=== PATIENT | female | born 1965 | race Caucasian/White ===

== ENCOUNTER 2017-03-12 08:58 | Observation (INO) | payer BC ==
[~2017-03-12 08:58] MED LIST: ceFAZolin SODIUM 2 GM in DEXTROSE 5 % IN WATER 50 ML IV PRN
--- OUTSIDE RECORDS SUMMARY | 2017-03-12 09:02 | XMS REPORT | Continuity of Care Document ---
:1965 Author Organization [facility] ([facility]) Address [address] [place] [address] Phone [phone] Care Team Providers Name Role Phone Nadeem Mariia Primary Care Provider [phone] Source Comments This disclosure is being made pursuant to the Care Everywhere program, applicable federal and state laws, and may not contain all informaitonavailable regarding this patient.[facility] ([facility]) Active Allergies and Adverse Reactions No Known Allergies Current Medications Prescription Sig. Disp. Refills Start Date End Date Status metFORMIN 1,000 mg Take 1,000 mg by Active tablet mouth 2 times daily. enalapril 5 mg tablet Take 5 mg by Active mouth daily. glimepiride 4 mg tablet Take 4 mg by Active mouth Every morning. sitaGLIPtin (JANUVIA) Take 100 mg by Active 100 mg tablet mouth daily. FLUoxetine 10 mg Take 10 mg by Active capsule mouth daily. FERROUS FUMARATE (IRON Take 65 mg by Active PO) mouth. cyanocobalamin (VITAMIN Take 500 mcg by Active B-12) 500 mcg tablet mouth daily. aspirin 81 mg EC tablet Take 81 mg by Active mouth daily. levonorgestrel-ethinyl Take 1 Tab by 56 Tab 12 05/11/2014 Active estradiol (AVIANE) mouth daily. Take 0.1-0.02 mg per tablet back to back packs Indications: ABNORMAL UTERINE BLEEDING levonorgestrel-ethinyl Take 1 tablet by 54 tablet 0 01/21/2016 Active estradiol (AVIANE) mouth daily. 0.1-0.02 mg per tablet Needs to be seen to get any future refills Active Problems Problem Noted Date PCOS (polycystic ovarian syndrome) 08/28/2014 Metrorrhagia 05/13/2007 Social History Tobacco Use Types Packs/Day Years Used Date Never Smoker Smokeless Tobacco: Never Used Last Filed Vital Signs Vital Sign Reading Time Taken Blood Pressure 141/82 08/28/2014 3:31 PM CHILD'S NURSE Pulse 93 08/28/2014 3:31 PM CHILD'S NURSE Temperature 37.2 C (99 F) 08/28/2014 3:31 PM CHILD'S NURSE Respiratory Rate - - Height 1.65 m (5' 4.96") 05/04/2014 1:09 PM CDT Weight 96.7 kg (213 lb 3 oz) 08/28/2014 3:31 PM CHILD'S NURSE Body Mass Index 35.52 08/28/2014 3:31 PM CHILD'S NURSE Oxygen Saturation - - Plan of Care Health Maintenance Due Date Last Done Comments Hepatitis B Vaccine (1 of 3 - Primary Series) 1965 Tdap Vaccine 1978 Lipid Disorder Screening 1985 MMR Vaccine 1985 Td Vaccine 1985 Cervical Cancer Screening 12/29/2002 12/30/1999 Mammogram 2007 Influenza Vaccine: Seasonal (#1) 05/05/2016 Results from Last 3 Months Not on file
[2017-03-12 09:14] LABS: Hematocrit 41.3 % (37.0-47.0); Mean Cell Volume 82.9 fl (78-100); Mean Corpuscular Hemoglobin 26.1 pg (27-31); Mean Corpuscular Hgb Conc 31.5 g/dl (32-36); Mean Platelet Volume 10.2 fl (6.0-9.5); Neutrophil # 10.7 K/mm3 (1.3-6.0); Neutrophil % 76.5 % (42-75.0); Platelet Count 361 K/mm3 (150-450); Red Blood Count 4.98 M/mm3 (4.2-5.4); Red Cell Distribution Width 14.2 % (11.5-14.0); White Blood Count 13.9 K/mm3 (4.0-10.5)
[2017-03-12 09:29] LABS: Albumin * 3.4 gm/dl (3.4-5.0); Anion Gap 13.4 mmol/L (6.8-13.8); BUN/Creatinine Ratio 20.7 (9.0-21.6); Bilirubin, Total 0.4 mg/dL (0.0-1.1); Ca. Corrected For Albumin 9.8 mg/dL (8.4-10.2); Calcium * 9.6 mg/dL (7.9-10.9); Carbon Dioxide 26.8 mmol/L (24-32.6); Potassium 5.2 mmol/L (3.4-4.6); Total Protein 7.8 gm/dL (6.2-8.2)
[2017-03-12] MEDS ORDERED: RINGERS SOLUTION,LACTATED 1,000 ML IV ONE ×4 (10:40→16:40)
--- OUTSIDE RECORDS SUMMARY | 2017-03-12 12:08 | XMS REPORT | Continuity of Care Document ---
:1965 Author Organization [facility] ([facility]) Address [address] [place] [address] Phone [phone] Care Team Providers Name Role Phone Nadeem Mariia Primary Care Provider [phone] Source Comments This disclosure is being made pursuant to the Care Everywhere program, applicable federal and state laws, and may not contain all informaitonavailable regarding this patient.[facility] ([facility]) Active Allergies and Adverse Reactions No [...] Taken Blood Pressure 141/82 08/28/2014 3:31 PM GERONTOLOGICAL NURSE PRACTITIONER Pulse 93 08/28/2014 3:31 PM GERONTOLOGICAL NURSE PRACTITIONER Temperature 37.2 C (99 F) 08/28/2014 3:31 PM GERONTOLOGICAL NURSE PRACTITIONER Respiratory Rate - - Height 1.65 m (5' 4.96") 05/04/2014 1:09 PM CDT Weight 96.7 kg (213 lb 3 oz) 08/28/2014 3:31 PM GERONTOLOGICAL NURSE PRACTITIONER Body Mass Index 35.52 08/28/2014 3:31 PM GERONTOLOGICAL NURSE PRACTITIONER Oxygen Saturation - - Plan of Care [...]
[2017-03-12] MEDS ORDERED: diphenhydrAMINE HCL 50 MG/ML VIAL IV PRN (15:37)
[2017-03-12] MEDS ORDERED: PROMETHAZINE HCL 12.5 MG in DEXTROSE 5 % IN WATER 50 ML IV PRN ×2 (15:37)
[2017-03-12] MEDS ORDERED: ONDANSETRON HCL/PF 2 MG/ML VIAL IV PRN ×2 (15:37→17:00)
[2017-03-12] MEDS ORDERED: HYDROmorphone HCL 2 MG/ML VIAL IV PRN (15:37)
[2017-03-12] MEDS ORDERED: NALOXONE HCL 1 MG/1 ML SYRG IV PRN (16:00)
[2017-03-12] MEDS ORDERED: INSULIN REGULAR, HUMAN 100 UNITS/ML VIAL IV ONE (16:00)
[2017-03-12] MEDS ORDERED: BUPIVACAINE HCL 50 ML VIAL IJ ONE (16:00)
[2017-03-12] MEDS ORDERED: IBUPROFEN 600 MG TABLET PO PRN (16:49)
[2017-03-12] MEDS ORDERED: RINGERS SOLUTION,LACTATED 1,000 ML IV PRN (16:49)
--- NOTE | 2017-03-12 16:49 | OR ---
Operative Report - Dictated Report Narrative: DATE OF PROCEDURE: 03/12/2017 PROCEDURE: 1. Total laparoscopic hysterectomy, bilateral salpingectomy 2. Lysis of adhesion 3. Diagnostic cystoscopy ANESTHESIA: General, endotracheal intubation. PREOPERATIVE DIAGNOSES: 1. Menorrhagia, failed hormonal therapy 2. S/P x 2 3. Uncontrolled diabetes POSTOPERATIVE DIAGNOSES: 1. Menorrhagia, failed hormonal therapy 2. S/P x 2 3. Uncontrolled diabetes SURGEON: Kirstin Virgen M.D. COLORED LIQUID PLASTIC APPLIER: Yris Barr FINDINGS: 1. Omental adhesions to anterior abdominal wall. 2. Lower uterine segment adhesions. 3. Uterus sounded to 8 cm. Both ovaries and fallopian tubes appeared normal. 4. On cystoscopy, the bladder appeared intact and bilateral ureteral jets were seen. SPECIMENS: Uterus, cervix, and both tubes DRAINS: None. URINE OUTPUT: 600 ml BLOOD LOSS: 100 ml INTRAOPARATIVE IV FLUIDS: 2000 ml COMPLICATIONS: None. DESCRIPTION OF PROCEDURE: The patient consented to the operation and was taken to the operating room. She was placed on the operating table supine. SCDs were placed on her lower extremities. General anesthesia was induced. Two grams of ancef was given by IV prior to anesthesia induction. She was repositioned in the dorsal lithotomy position. Her right arm was tucked at her side under the drape. Exam under anesthesia revealed a tight vaginal introitus and a normal size uterus with no adnexal mass. The abdomen was prepped with Chloraprep and the vagina was prepped with Betadine. She was draped in the usual sterile fashion. A time-out procedure was conducted to confirm the correct patient for the correct procedure. After time-out, a Waters catheter was placed into the bladder. A bivalve speculum was placed into the vagina. The vagina and the cervix were prepped with Betadine one more time. The anterior cervix was grasped with a single-tooth tenaculum. The uterus was sounded to 8 cm. A large VCare uterine manipulator was inserted into the uterine cavity. The balloon was inflated with 5 cc of air. The single-tooth tenaculum was removed. Paris speculum was removed. The upper VCare cup was advanced into the vagina to hug the cervix. The lower VCare cup was advanced into the vagina to align with the upper VCare cup and to provide pneumoperitoneum for the procedure. The lower VCare cup was fastened to the uterine manipulator. The surgeon then changed gloves and attention was paid to the abdomen. A small vertical incision was made at the upper edge of the umbilicus. A Veress needle was inserted into the abdominal cavity. Intraabdominal placement was confirmed with a saline drop test and with low entry pressure of 4 mmHg. The abdomen was insufflated with CO2 gas to an intraabdominal pressure of 12 mmHg. The Veress needle was removed. A 5 mm trocar with the laparoscope was inserted through the umbilicus incision into the abdomen. Intraabdominal placement was confirmed with the laparoscope. Survey of the entry site revealed no trauma to the underlying structures. Survey of the upper abdomen was unremarkable. The patient was then placed in Trendelenburg position. A left and a right lower quadrant trocars (5 mm) were placed under the direct visualization of the laparoscope. The omentum adhesions in the anterior abdominal wall was taken down with the Thunderbeat. This allowed the visualization to the pelvis. A third trocar (5 mm) was placed suprapubically in the midline. Survey of the pelvis revealed findings note above. Attention was now turned to the left side. The left fallopian tubal was elevated. The mesosalpinx was divided with the Thunderbeat. The division was carried to the cornual region. The uteroovarian ligament was divided with the Thunderbeat and the division was carried on the broad ligament to the round ligament towards the lower uterine segment. The course of the left ureter was not identified, but believed to be away from the surgical field. The broad ligament incision was into the anterior leaf and the posterior leaf. Anterior leaf of the broad ligament was dissected towards the bladder uterine reflection. There was dense adhesion in the lower uterine segment. Careful dissection was performed here. The posterior leaf of the broad ligament was dissected towards the uterosacral ligament. The left uterine vessel was isolated and divided with the Thunderbeat. There was bleeding from the uterine vessel and this was secured with the Thunderbeat. The cardinal ligament complex was divided with the Thunderbeat to the level of vaginal cervical junction. Attention was now turned to the right side. The mesosalpinx was divided with the Thunderbeat. The uteroovarian ligament was divided with the Thunderbeat and the division was carried on the broad ligament to the round ligament towards the lower uterine segment. The course of the right ureter was not identified due to excess adipose tissue from obesity. The broad ligament incision was into the anterior leaf and the posterior leaf. The anterior leaf of the broad ligament was dissected towards the bladder uterine reflection. Again, careful dissection was performed here due to dense adhesion in the lower uterine segment. The posterior leaf of the broad ligament was dissected towards the uterosacral ligament. The right uterine vessel was isolated, and divided with the Thunderbeat. There was some bleeding here and was controlled with the Thunderbeat. The cardinal ligament complex was divided with the Thunderbeat to the level of vaginal cervical junction. Now the vaginal fornix was able to seen well through the VCare cup. The Thunderbeat was used to make an anterior colpotomy over the VCare cup groove. Entry into the vagina was without complications. A circumferential incision was made along the vaginal cervical junction using the Thunderbeat. Bilateral uterosacral ligament was divided. The cervix was completely divided from the vagina. The surgeon moved to the vaginal area to retrieve the specimen. The VCare uterine manipulator was removed. The cervix with the uterus and both tubes were removed through the vagina in one piece. The vagina was packed with 2 moist laps to keep the pneumoperitoneum. The surgeon then changed gloves and attention was paid back to the abdomen. The pelvis was thoroughly irrigated with saline. The vaginal opening was closed transversely with interrupted 0 Vicryl Endoknot suture using intracorporeal suturing technique and extracorporeal knot tying. The uterosacral ligament on each side was sutured to the vaginal cuff corner for cuff support. The pelvis was irrigated with saline. Extra fluid was suctioned out from the abdomen and pelvis. There was hemostasis in all vessel pedicles. The patient was taken out of Trendelenburg Three lower abdominal trocars were removed. The abdomen was deflated. The trocar at the umbilicus was removed with the laparoscope. The skin incision was closed with 4-0 Monocryl suture and was covered with Steri- Strips. 2-3 ml of 0.25% Marcaine was infiltrated under the laparoscopic incision for post op pain management. Next, a diagnostic cystoscopy was performed. Vaginal packing was removed and the Waters catheter was removed. A 70-degree cystoscope was introduced through the urethra into the bladder. Exam of the bladder revealed the bladder was intact. There were urine jets coming out from the left as well as the right ureteral orifice, confirming the integrity of ureters. The cystoscope was removed. The Waters catheter was not replaced. The patient tolerated the procedure well. All counts were correct and the patient was taken to the recovery room in stable condition. Abount 40 min prior to the complete of the procedure, patient's blood glucose was 237 and 12 unit of insulin was given by the anesthesiologist. Kirstin Virgen MD
[2017-03-12] MEDS ORDERED: HYDROcodone/ACETAMINOPHEN 1 EACH TABLET PO PRN (16:53)
[2017-03-12] MEDS: RINGERS SOLUTION,LACTATED 1,000 ML IV PRN ×2 (17:29→23:47)
[2017-03-12] MEDS ORDERED: ALPRAZolam 0.5 MG TABLET PO PRN (19:45)
[2017-03-12] MEDS ORDERED: HYDROmorphone HCL 1 MG/ML DISP.SYRIN IV PRN (19:48)
[2017-03-12] MEDS ORDERED: INSULIN REGULAR, HUMAN 100 UNITS/ML VIAL SC SCH (21:00)
[2017-03-12] MEDS ORDERED: INSULIN GLARGINE,HUM.REC.ANLOG 100 UNITS/ML VIAL SC SCH ×2 (21:00)
[2017-03-12] MEDS ORDERED: ATORVASTATIN CALCIUM 10 MG TABLET PO SCH (21:00)
[2017-03-12] MEDS: FERROUS SULFATE 325 MG TABLET PO SCH (21:07)
[2017-03-12] MEDS: RINGERS SOLUTION,LACTATED 500 ML IV PRN ×2 (21:21→22:21)
[2017-03-12] MEDS ORDERED: RINGERS SOLUTION,LACTATED 500 ML IV PRN (22:39)
--- NOTE | 2017-03-12 23:24 | PN ---
<Monique Bolton - Last Filed: 03/13/17 01:52> Subjective - Date and Time Seen Date: 03/12/17 Time: 20:15 Subjective Narrative: doing well, has not voided yet but feels like she needs to. no n/v. no cp/ dyspnea. post op hysterectomy / bilateral salpingectomy. Objective - Review of Systems Generalized/Overall Review: Reports: No Symptoms Reported EENTM: Reports: No Symptoms Reported Respiratory: Reports: No Symptoms Reported Cardiac: Reports: No Symptoms Reported Abdominal: Reports: No Symptoms Reported Genitourinary Symptoms: Reports: Other - feels like needs to urinate but unable to void yet post op Musculoskeletal Complaints: Reports: No Symptoms Reported Neurological: Reports: No Symptoms Reported Skin: Reports: No Symptoms Reported Endocrine: Reports: No Symptoms Reported Misc: All systems neg except as marked - Vitals Vitals: Last Vital Signs Temp 37.3 C 03/12/17 20:10 Pulse 112 H 03/12/17 22:10 Resp 16 03/12/17 22:10 BP 129/72 03/12/17 22:10 Pulse Ox 98 03/12/17 22:10 - Abnormal Lab Findings Abnormal Lab Findings: Abnormal Lab Results 03/12/17 03/12/17 Range/Units 09:05 09:05 WBC 13.9 H (4.0-10.5) K/mm3 MCH 26.1 L (27-31) pg MCHC 31.5 L (32-36) g/dl RDW 14.2 H (11.5-14.0) % MPV 10.2 H (6.0-9.5) fl Immature Gran % (Auto) 0.50 H (0.001-0.429) % Immature Gran # (Auto) 0.07 H (0.000-0.0310) K/mm3 Neutrophils % 76.5 H (42-75.0) % Lymphocytes % 12.7 L (20-51) % Eosinophils % 3.2 H (0.0-3.0) % Neutrophils # 10.7 H (1.3-6.0) K/mm3 Potassium 5.2 H D (3.4-4.6) mmol/L Random Glucose 228 H (70-110) mg/dL AST 59 H (0-48) U/L - Exam Constitutional: Present: Alert, Cooperative, No distress ENT Exam: Present: hearing grossly normal Neck: Present: full range of motion, supple Breasts: Present: Exam deferred Respiratory: Present: lungs clear, normal breath sounds, no respiratory distress Cardiovascular/Chest: Present: normal peripheral pulses, regular rate, rhythm, no chest tenderness, tachycardia Abdomen: Present: soft, nondistended, tender /Rectal: Present: Exam deferred Extremity: Present: non-tender, normal inspection, no pedal edema Skin Exam: Present: normal color, warm/dry, no cyanosis Assessment/Plan Plan Narrative: s/p hysterectomy and bilateral salpingectomy - per vat tender - encourage good pain management - currently unable to void with tachycardia (although denies pain) - will give 500 ml bolus LR - discharge per vat tender DM, uncontrolled with hyperglycemia - recent hgba1c 11.0 - current lantus dose 10 unts at bedtime - increase to 15 units at bedtime - high dose sliding scale QID - accu-check QID - continue metformin and actos - follow up outpt Chronic medical conditions - general anxiety disorder - obesity - HLD Code status: Full Code VTE: early ambulation GI proph: protonix po. - Problems/Diagnosis (1) S/P hysterectomy Problem: Acute (2) Status post bilateral salpingectomy Problem: Acute (3) Diabetes Problem: Chronic QualifierTitle: Diabetes mellitus type: type 2 Diabetes mellitus complication status: with hyperglycemia Diabetes mellitus termite exterminator helper insulin use: with prison use Qualified Code(s): E11.65 - Type 2 diabetes mellitus with hyperglycemia; Z79.4 - intermediate (current) use of insulin (4) Obesity Problem: Chronic QualifierTitle: Obesity type: due to excess calories Obesity severity: non-morbid Qualified Code(s): E66.09 - Other obesity due to excess calories (5) DAVID (generalized anxiety disorder) Problem: Chronic (6) HLD (hyperlipidemia) Problem: Chronic QualifierTitle: Hyperlipidemia type: unspecified Qualified Code(s): E78.5 - Hyperlipidemia, unspecified <Gage Mathew - Last Filed: 03/13/17 18:10> Subjective Subjective Narrative: progress as expected. I personally directed our nurse practitioner care for this patient. Objective - Vitals Vitals: Last Vital Signs Temp 37 C 03/13/17 06:47 Pulse 104 H 03/13/17 08:50 Resp 18 03/13/17 06:47 BP 123/71 03/13/17 08:50 Pulse Ox 98 03/13/17 06:47 - Abnormal Lab Findings Abnormal Lab Findings: Abnormal Lab Results 03/13/17 03/13/17 Range/Units 06:34 06:34 WBC 13.3 H (4.0-10.5) K/mm3 Hgb 11.1 L (12.5-16.0) gm/dL Hct 35.1 L (37.0-47.0) % MCH 26.4 L (27-31) pg MCHC 31.6 L (32-36) g/dl RDW 14.3 H (11.5-14.0) % MPV 10.3 H (6.0-9.5) fl Immature Gran % (Auto) 0.50 H (0.001-0.429) % Immature Gran # (Auto) 0.07 H (0.000-0.0310) K/mm3 Lymphocytes % 17.0 L (20-51) % Neutrophils # 9.7 H (1.3-6.0) K/mm3 Monocytes # 1.1 H (0.0-1.0) k/mm3 Anion Gap 14.4 H (6.8-13.8) mmol/L Random Glucose 162 H (70-110) mg/dL Albumin 2.7 L (3.4-5.0) gm/dl
[2017-03-13 06:46] LABS: Hematocrit 35.1 % (37.0-47.0); Hemoglobin 11.1 gm/dL (12.5-16.0); Mean Cell Volume 83.4 fl (78-100); Mean Corpuscular Hemoglobin 26.4 pg (27-31); Mean Corpuscular Hgb Conc 31.6 g/dl (32-36); Mean Platelet Volume 10.3 fl (6.0-9.5); Neutrophil # 9.7 K/mm3 (1.3-6.0); Neutrophil % 72.9 % (42-75.0); Platelet Count 296 K/mm3 (150-450); Red Blood Count 4.21 M/mm3 (4.2-5.4); Red Cell Distribution Width 14.3 % (11.5-14.0); White Blood Count 13.3 K/mm3 (4.0-10.5)
[2017-03-13 06:49] VITALS: BP 123/71
[2017-03-13 06:52] LABS: Albumin * 2.7 gm/dl (3.4-5.0); Anion Gap 14.4 mmol/L (6.8-13.8); BUN/Creatinine Ratio 15.4 (9.0-21.6); Bilirubin, Total 0.5 mg/dL (0.0-1.1); Ca. Corrected For Albumin 9.7 mg/dL (8.4-10.2); Carbon Dioxide 26.9 mmol/L (24-32.6); Potassium 4.3 mmol/L (3.4-4.6); Total Protein 6.5 gm/dL (6.2-8.2)
[2017-03-13] MEDS ORDERED: PANTOPRAZOLE SODIUM 40 MG TABLET.EC PO SCH (07:00)
--- NOTE | 2017-03-13 07:22 | PN ---
Subjective - Date and Time Seen Date: 03/13/17 Time: 07:17 Subjective Narrative: doing well. states pain controlled. tachycardic overnight - asymptomatic. no n /v. no cp/dyspnea. post op hysterectomy / bilateral salpingectomy. Objective - Review of Systems Generalized/Overall Review: Reports: No Symptoms Reported EENTM: Reports: No Symptoms Reported Respiratory: Reports: No Symptoms Reported Cardiac: Reports: No Symptoms Reported Abdominal: Reports: Abdominal Pain Genitourinary Symptoms: Reports: No Symptoms Reported Musculoskeletal Complaints: Reports: No Symptoms Reported Neurological: Reports: No Symptoms Reported Skin: Reports: No Symptoms Reported Endocrine: Reports: No Symptoms Reported Misc: All systems neg except as marked - Vitals Vitals: Last Vital Signs Temp 37 C 03/13/17 06:47 Pulse 104 H 03/13/17 06:47 Resp 18 03/13/17 06:47 BP 123/71 03/13/17 06:47 Pulse Ox 98 03/13/17 06:47 - Abnormal Lab Findings Abnormal Lab Findings: Abnormal Lab Results 03/12/17 03/12/17 03/13/17 Range/Units 09:05 09:05 06:34 WBC 13.9 H 13.3 H (4.0-10.5) K/mm3 Hgb 11.1 L (12.5-16.0) gm/dL Hct 35.1 L (37.0-47.0) % MCH 26.1 L 26.4 L (27-31) pg MCHC 31.5 L 31.6 L (32-36) g/dl RDW 14.2 H 14.3 H (11.5-14.0) % MPV 10.2 H 10.3 H (6.0-9.5) fl Immature Gran % (Auto) 0.50 H 0.50 H (0.001-0.429) % Immature Gran # (Auto) 0.07 H 0.07 H (0.000-0.0310) K/mm3 Neutrophils % 76.5 H (42-75.0) % Lymphocytes % 12.7 L 17.0 L (20-51) % Eosinophils % 3.2 H (0.0-3.0) % Neutrophils # 10.7 H 9.7 H (1.3-6.0) K/mm3 Monocytes # 1.1 H (0.0-1.0) k/mm3 Potassium 5.2 H D (3.4-4.6) mmol/L Anion Gap (6.8-13.8) mmol/L Random Glucose 228 H (70-110) mg/dL AST 59 H (0-48) U/L Albumin (3.4-5.0) gm/dl 03/13/ Range/Units 06:34 WBC (4.0-10.5) K/mm3 Hgb (12.5-16.0) gm/dL Hct (37.0-47.0) % MCH (27-31) pg MCHC (32-36) g/dl RDW (11.5-14.0) % MPV (6.0-9.5) fl Immature Gran % (Auto) (0.001-0.429) % Immature Gran # (Auto) (0.000-0.0310) K/mm3 Neutrophils % (42-75.0) % Lymphocytes % (20-51) % Eosinophils % (0.0-3.0) % Neutrophils # (1.3-6.0) K/mm3 Monocytes # (0.0-1.0) k/mm3 Potassium (3.4-4.6) mmol/L Anion Gap 14.4 H (6.8-13.8) mmol/L Random Glucose 162 H (70-110) mg/dL AST (0-48) U/L Albumin 2.7 L (3.4-5.0) gm/dl - Exam Constitutional: Present: Alert, Oriented x3, Cooperative, No distress ENT Exam: Present: hearing grossly normal Neck: Present: supple Respiratory: Present: lungs clear, normal breath sounds, no respiratory distress Cardiovascular/Chest: Present: normal peripheral pulses, regular rate, rhythm, tachycardia Abdomen: Present: soft, nondistended, tender /Rectal: Present: Exam deferred Extremity: Present: normal range of motion, non-tender, normal inspection, no pedal edema Skin Exam: Present: normal color, warm/dry, no cyanosis Assessment/Plan Plan Narrative: s/p hysterectomy and bilateral salpingectomy - per b2b sales executive - encourage good pain management - discharge per b2b sales executive DM, uncontrolled with hyperglycemia - recent hgba1c 11.0 - discharge with lantus at 10 units q hs - no sliding scale at discharge. - continue metformin and actos - follow up outpt HTN - restart lisinopril as blood pressure is higher this am. - CMP next week Chronic medical conditions - general anxiety disorder - obesity - HLD Code status: Full Code VTE: early ambulation GI proph: protonix po. - Problems/Diagnosis (1) S/P hysterectomy Problem: Acute (2) Status post bilateral salpingectomy Problem: Acute (3) Diabetes Problem: Chronic Qualifiers: Diabetes mellitus type: type 2 Diabetes mellitus complication status: with hyperglycemia Diabetes mellitus long-term insulin use: with long-term use Qualified Code(s): E11.65 - Type 2 diabetes mellitus with hyperglycemia; Z79.4 - jail (current) use of insulin (4) Obesity Problem: Chronic Qualifiers: Obesity type: due to excess calories Obesity severity: non-morbid Qualified Code(s): E66.09 - Other obesity due to excess calories (5) DAVID (generalized anxiety disorder) Problem: Chronic (6) HLD (hyperlipidemia) Problem: Chronic Qualifiers: Hyperlipidemia type: unspecified Qualified Code(s): E78.5 - Hyperlipidemia , unspecified
[2017-03-13] MEDS ORDERED: INSULIN GLARGINE,HUM.REC.ANLOG 100 UNITS/ML VIAL SC SCH (07:23)
--- NOTE | 2017-03-13 08:53 | DS ---
(1) S/P hysterectomy Problem: Acute (2) Status post bilateral salpingectomy Problem: Acute (3) Diabetes Problem: Chronic Qualifiers: Diabetes mellitus type: type 2 Diabetes mellitus complication status: with hyperglycemia Diabetes mellitus joint terminal attack controller insulin use: with joint terminal attack controller use Qualified Code(s): E11.65 - Type 2 diabetes mellitus with hyperglycemia; Z79.4 - joint terminal attack controller (current) use of insulin Description of Stay: post op day 1, s/p TLH and BS. no complaints. doing well. blood sugar much improved and below 200. ambulating and tolerating diet well. voided. pain controlled. Exam: Well Abdomen: non-distended, soft, non-tender, normal bowel sounds. Incisions: intact. Ext: no edema or calf tenderness. Plan: will discharge home today. follow recommendations from PCP regarding diabetes treatment. Kirstin Virgen MD Procedures Performed: see notes below - total laparoscopic hysterectomy, bilateral salpingectomy, lysis of adhesions and cystoscopy Discharge Disposition: Home self care Disposition: Home self-care Condition: Good Discharge Activity: Activity as tolerated, Other - No lifting more than 5 lbs Discharge Diet: Consistent carbs Complete Home Medications List: Complete Home Medication List: ALPRAZolam [Xanax] 0.25 - 0.5 mg PO Q8H PRN 02/26/17 Atorvastatin Calcium [Lipitor] 20 mg PO HS 02/26/17 Biotin [Meribin] 5 mg PO DAILY 02/26/17 Blood-Glucose Meter [Blood Glucose Monitoring] 1 each MC BID 02/26/17 Cyanocobalamin [Vitamin B-12] 1,000 mcg PO DAILY 02/26/17 Enalapril Maleate [Vasotec] 10 mg PO DAILY 02/26/17 FLUoxetine HCL [Prozac] 10 mg PO DAILY 02/26/17 Ferrous Sulfate [Iron] 325 mg PO BID 02/26/17 Pioglitazone HCl [Actos] 30 mg PO DAILY 02/26/17 metFORMIN HCL [Glucophage] 1,000 mg PO BIDWM 02/26/17 Insulin Glargine,Hum.rec.anlog [Lantus] 10 units SC HS 03/12/17 HYDROcodone/ACETAMINOPHEN [Junction 5-325 Tablet] 1 tab PO Q4H PRN #20 tab Ibuprofen [Motrin] 800 mg PO Q8H PRN #30 tablet 03/13/17
[2017-03-13] MEDS ORDERED: ENALAPRIL MALEATE 5 MG TABLET PO SCH ×2 (09:00)
[2017-03-13] MEDS ORDERED: BIOTIN 5 MG PO SCH (09:00)
[2017-03-13] MEDS ORDERED: PIOGLITAZONE HCL 15 MG TABLET PO SCH (09:00)
[2017-03-13] MEDS ORDERED: FLUoxetine HCL 10 MG CAPSULE PO SCH (09:00)
[2017-03-13] MEDS ORDERED: CYANOCOBALAMIN 1,000 MCG TABLET PO SCH (09:00)
[2017-03-13] MEDS: FERROUS SULFATE 325 MG TABLET PO SCH (09:18)
[2017-03-13] MEDS ORDERED: ROSUVASTATIN CALCIUM 10 MG TABLET PO SCH (21:00)
== END 2017-03-13 11:00 | disposition home or self-care (01) ==
LOC: AMB 08:58 → INTOOBSV 12:03 → MS 12:03
PROVIDERS: ADMIT Obstetrics & Gynecology; ATTEND Obstetrics & Gynecology
PROC: 0UB74ZZ Excision of Bilateral Fallopian Tubes, Percutaneous Endoscopic Approach (ICD-10-PCS; 2017-03-12)
PROC: 0TJB8ZZ Inspection of Bladder, Via Natural or Artificial Opening Endoscopic (ICD-10-PCS; 2017-03-12)
PROC: 0UT94ZZ Resection of Uterus, Percutaneous Endoscopic Approach (ICD-10-PCS; principal; 2017-03-12 12:20)
PROC: 0UTC4ZZ Resection of Cervix, Percutaneous Endoscopic Approach (ICD-10-PCS; 2017-03-12 12:20)
DX: N92.0 Excessive and frequent menstruation with regular cycle (principal); E11.65 Type 2 diabetes mellitus with hyperglycemia
CPT/HCPCS: 36415; 52000; 58571; 80053; 84703; 85025; 86850; 86900; 88307; 93005; 96372; G0378